=== PATIENT | female | born 1965 | race Caucasian/White ===

== ENCOUNTER 2016-11-01 06:24 | Emergency (ER) | payer OTHER ==
[~2016-11-01] VITALS: Ht 165.1 cm; Wt 80.0 kg
[~2016-11-01 06:24] MED LIST: BP MED PO; CIPR500T4 PO; GABA100C2 PO; LORTA5 PO; SLEEP MED PO; ZOFR4TAB3 SL
[2016-11-01 06:26] VITALS: BP 188/101; PULSE 75; RESP 20; TEMP 98.7; O2SAT 97
[2016-11-01] MEDS ORDERED: SODIUM CHLOR 0.9% 1000 ML INJ 1,000 ML IV SCH (07:10)
[2016-11-01] MEDS ORDERED: SODIUM CHLORIDE 0.9% FLUSH 10 ML FLUSH IV FLUSH PRN (07:15)
[2016-11-01] MEDS ORDERED: ONDANSETRON HCL 4 MG/2 ML VIAL IVP ONE (07:15)
[2016-11-01] MEDS ORDERED: KETOROLAC TROMETHAMINE 30 MG/ML (IVP) VIAL IVP ONE (07:15)
--- NOTE | 2016-11-01 07:16 | PD ---
HPI Chief Complaint: Abdominal Pain Time Seen by Provider: 07:06 Travel History International Travel<30 days: No Contact w/Intl Traveler<30days: No Traveled to known affect area: No History of Present Illness HPI 51-year-old female presents emergency Department with acute onset suprapubic and right lower quadrant abdominal pain since approximately 4:00 this morning. Patient states it felt like a menstrual cramp at first but she's not had a period in 3 months because she is going through "change". She denies any nausea vomiting diarrhea constipation. She states she does have some dark stools. States this never happened to her before. She does have a history of endometrial ablation. Only surgery to the abdomen as gallbladder. Patient states her pain is intense right lower quadrant cramping in nature and rapidly worsening. PFSH Past Medical History Cancer: No Cardiovascular Problems: Yes (HTN) Diabetes: No Endocrine: No Gastrointestinal Disorders: Yes GERD: Yes Glaucoma: No Genitourinary: Yes (ENLARGED KIDNEY PER PT "BORN WITH") Headaches: Yes Hepatitis: No Hiatal Hernia: No Hypertension: Yes Musculoskeletal: Yes (NECK SPURS) Neurologic: Yes ("FOR A SPOT ON MY BRAIN") Psychiatric: No Reproductive: No Respiratory: No Thyroid Disease: No Tetanus Vaccination: Unknown ?: Not : 5 Para: 3 Miscarriage: 2 Past Surgical History Cholecystectomy: Yes Gynecologic Surgery: Yes (OVARIAN CYST REMOVED/ABLATION OF UTERUS) Oral Surgery: Yes (TEETH EXTRACTED) Pacemaker: No Other Surgery: Yes Social History Alcohol Use: Yes (OCCAS) Tobacco Use: Yes (1 PK/DAY) Substance Use: No Allergies-Medications (Allergen,Severity, Reaction): Coded Allergies: Clindamycin (Verified Allergy, Severe, rash, 11/01/16) Codeine (Verified Allergy, Severe, 11/01/16) Penicillin (Verified Allergy, Mild, RASH, NAUSEA & VOMITING, 11/01/16) Reported Meds & Prescriptions Reported Meds & Active Scripts Active Ultram (Tramadol HCl) 50 Mg Tab 50 Mg PO Q6H PRN Ciprofloxacin (Ciprofloxacin HCl) 500 Mg Tab 500 Mg PO BID 7 Days Reported [Sleep Med] 1 Tab PO HS [Bp Med ] 1 Tab PO HS Review of Systems Except as stated in HPI: all other systems reviewed are Neg Physical Exam Narrative GENERAL: Well-developed well-nourished appears uncomfortable SKIN: Focused skin assessment warm/dry. HEAD: Atraumatic. Normocephalic. EYES: Pupils equal and round. No scleral icterus. No injection or drainage. ENT: No nasal bleeding or discharge. Mucous membranes pink and moist. NECK: Trachea midline. No JVD. CARDIOVASCULAR: Regular rate and rhythm. No murmur appreciated. RESPIRATORY: No accessory muscle use. Clear to auscultation. Breath sounds equal bilaterally. GASTROINTESTINAL: Abdomen soft, non-tender, nondistended. Hepatic and splenic margins not palpable. MUSCULOSKELETAL: No obvious deformities. No clubbing. No cyanosis. No edema. NEUROLOGICAL: Awake and alert. No obvious cranial nerve deficits. Motor grossly within normal limits. Normal speech. PSYCHIATRIC: Appropriate mood and affect; insight and judgment normal. Data Data Last Documented VS Vital Signs Date Time Temp Pulse Resp B/P Pulse Ox O2 Delivery O2 Flow Rate FiO2 11/01/16 10:00 83 16 144/91 99 Room Air 11/01/16 06:26 98.7 Orders Urinalysis - C+S If Indicated (11/01/16 06:57) Ed Urine Pregnancytest Poc (11/01/16 06:57) Complete Blood Count With Diff (11/01/16 07:10) Comprehensive Metabolic Panel (11/01/16 07:10) Lipase (11/01/16 07:10) Prothrombin Time / Inr (Pt) (11/01/16 07:10) Act Partial Throm Time (Ptt) (11/01/16 07:10) Iv Access Insert/Monitor (11/01/16 07:10) Ecg Monitoring (11/01/16 07:10) Oximetry (11/01/16 07:10) Ondansetron Inj (Zofran Inj) (11/01/16 07:15) Sodium Chlor 0.9% 1000 Ml Inj (Ns 1000 M (11/01/16 07:10) Sodium Chloride 0.9% Flush (Ns Flush) (11/01/16 07:15) Ketorolac Inj (Toradol Inj) (11/01/16 07:15) Ct Abd/Pel W Iv Contrast(Rout) (11/01/16 ) Urine Culture (11/01/16 08:27) Iohexol 350 Inj (Omnipaque 350 Inj) (11/01/16 09:08) Oxycodone-Acetamin 5-325 Mg (Percocet (11/01/16 09:45) Labs Laboratory Tests Test 11/01/16 11/01/16 07:45 08:27 White Blood Count 14.3 TH/MM3 Red Blood Count 4.44 MIL/MM3 Hemoglobin 13.4 GM/DL Hematocrit 40.7 % Mean Corpuscular Volume 91.6 FL Mean Corpuscular Hemoglobin 30.3 PG Mean Corpuscular Hemoglobin 33.0 % Concent Red Cell Distribution Width 13.6 % Platelet Count 346 TH/MM3 Mean Platelet Volume 7.7 FL Neutrophils (%) (Auto) 78.0 % Lymphocytes (%) (Auto) 14.5 % Monocytes (%) (Auto) 5.7 % Eosinophils (%) (Auto) 1.6 % Basophils (%) (Auto) 0.2 % Neutrophils # (Auto) 11.2 TH/MM3 Lymphocytes # (Auto) 2.1 TH/MM3 Monocytes # (Auto) 0.8 TH/MM3 Eosinophils # (Auto) 0.2 TH/MM3 Basophils # (Auto) 0.0 TH/MM3 CBC Comment DIFF FINAL Differential Comment Prothrombin Time 10.0 SEC Prothromb Time International 0.9 RATIO Ratio Activated Partial 29.0 SEC Thromboplast Time Sodium Level 137 MEQ/L Potassium Level 4.0 MEQ/L Chloride Level 107 MEQ/L Carbon Dioxide Level 23.0 MEQ/L Anion Gap 7 MEQ/L Blood Urea Nitrogen 11 MG/DL Creatinine 0.44 MG/DL Estimat Glomerular Filtration 151 ML/MIN Rate Random Glucose 98 MG/DL Calcium Level 8.4 MG/DL Total Bilirubin 0.4 MG/DL Aspartate Amino Transf 20 U/L (AST/SGOT) Alanine Aminotransferase 15 U/L (ALT/SGPT) Alkaline Phosphatase 79 U/L Total Protein 7.0 GM/DL Albumin 3.7 GM/DL Lipase 90 U/L Urine Color YELLOW Urine Turbidity CLEAR Urine pH 7.0 Urine Specific [place] 1.013 Urine Protein NEG mg/dL Urine Glucose (UA) NEG mg/dL Urine Ketones NEG mg/dL Urine Occult Blood SMALL Urine Nitrite NEG Urine Bilirubin NEG Urine Urobilinogen LESS THAN 2.0 MG/DL Urine Leukocyte Esterase MOD Urine RBC 1 /hpf Urine WBC 21 /hpf Urine Squamous Epithelial 2 /hpf Cells Urine Bacteria RARE /hpf Urine Mucus FEW /lpf Microscopic Urinalysis Comment CULTURE INDICATED MDM Medical Decision Making Medical Screen Exam Complete: Yes Emergency Medical Condition: Yes Differential Diagnosis Uterine pain, pelvic cramping, menstrual cramping, urinary tract infection, appendicitis, acute abdomen unlikely. Narrative Course Patient was roomed in the emergency department, she appears uncomfortable but is easily distracted from her pain. She was initially given Toradol and stated she was still having significant pain. A CT abdomen was pursued which did show what appear to be uterine fibroids versus mass. This was discussed at length with the patient and recommend that she need follow-up with an [facility] for consideration of biopsy. The remainder of her labs were unremarkable except for urinary tract infection. Patient given Percocet now feeling somewhat better. Did discuss with the patient a pelvic exam and she declined at this time. Discussed symptomatically management and return to ED criteria. She stable for discharge at this time. Diagnosis Primary Impression: Pelvic pain Additional Impressions: Urinary tract infection Uterine fibroid Referrals: Celia Douglas MD Additional Instructions: Need follow-up with an [facility] for consideration of a biopsy of the uterus. Med/Other Pt SpecificInfo: Prescription(s) given Scripts Tramadol (Ultram)50 Mg Tab50 Mg PO Q6H PRN (PAIN) #12 TAB Ref 0 Prov:Ziggy Driscoll MD 11/01/16 Ciprofloxacin 500 Mg Onb932 Mg PO BID 7 Days Ref 0 Prov:Ziggy Driscoll MD 11/01/16 Disposition: 01 DISCHARGE HOME Condition: Stable Ziggy Driscoll MD Nov 01, 2016 07:16
[2016-11-01 07:27] VITALS: BP 153/88; PULSE 69; RESP 20; O2SAT 100
[2016-11-01 08:03] LABS: AUTOMATED NEUTROPHIL # 11.2 TH/MM3 (1.8-7.7); BASOPHIL % 0.2 % (0.0-2.0); EOSINOPHIL # 0.2 TH/MM3 (0-0.4); EOSINOPHIL % 1.6 % (0.0-4.0); HEMATOCRIT 40.7 % (35.0-46.0); HEMO FLAGS DIFF FINAL; LYMPH % 14.5 % (9.0-44.0); LYMPHOCYTE # 2.1 TH/MM3 (1.0-4.8); MEAN CELL VOLUME 91.6 FL (80.0-100.0); MEAN CORPUSCULAR HEMOGLOBIN 30.3 PG (27.0-34.0); MONO % 5.7 % (0.0-8.0); PLATELET COUNT 346 TH/MM3 (150-450); RED BLOOD COUNT 4.44 MIL/MM3 (4.00-5.30); RED CELL DISTRIBUTION WIDTH 13.6 % (11.6-17.2); WHITE BLOOD COUNT 14.3 TH/MM3 (4.0-11.0)
[2016-11-01 08:15] LABS: INTERNATIONAL NORMALIZED RATIO 0.9 RATIO
[2016-11-01 08:19] LABS: ALT (GPT) 15 U/L (10-53); ANION GAP 7 MEQ/L (5-15); AST (GOT) 20 U/L (15-37); BLOOD UREA NITROGEN 11 MG/DL (7-18); CHLORIDE 107 MEQ/L (98-107); GLOMERULAR FILTRATION RATE 151 ML/MIN (>89); SODIUM (NA) 137 MEQ/L (136-145)
[2016-11-01 08:21] LABS: ALKALINE PHOSPHATASE 79 U/L (45-117); TOTAL BILIRUBIN ADULT 0.4 MG/DL (0.2-1.0)
[2016-11-01 08:37] LABS: BACTERIA, URINE RARE /hpf; BLOOD, URINE SMALL (NEG); COMMENT (UR) CULTURE INDICATED; CULTURE IF INDICATED CULTURE INDICATED; GLUCOSE,URINE NEG (NEG); KETONE, URINE NEG (NEG); MUCUS URINE FEW /lpf (OCC); NITRITE,URINE NEG (NEG); SQUAMOUS EPITHELIAL CELL URINE 2 /hpf (0-5); URINE COLOR YELLOW (YELLW/STRAW)
[2016-11-01] MEDS ORDERED: IOHEXOL 350 MG/ML 10 ML VIAL (for RAD DIAG) IV ONE (09:08)
--- NOTE | 2016-11-01 09:22 | RADRPT ---
EXAM DATE/TIME: 11/01/2016 09:07 [facility] COMPARISON: CT ABDOMEN & PELVIS W/O CONTRAST, June 28, 2014, 16:24. INDICATIONS : Abdomen pain. IV CONTRAST: 100 cc Omnipaque 350 (iohexol) IV ORAL CONTRAST: No oral contrast ingested. RADIATION DOSE: 9.96 CTDIvol (mGy) MEDICAL HISTORY : Hypertension. SURGICAL HISTORY : Cholecystectomy. ENCOUNTER: Initial ACUITY: 1 day PAIN SCALE: 5/10 LOCATION: Bilateral abdomen. TECHNIQUE: Volumetric scanning of the abdomen and pelvis was performed. Using automated exposure control and ad justment of the mA and/or kV according to patient size, radiation dose was kept as low as reasonably achievable to obtain optimal diagnostic quality images. FINDINGS: Patient is status post cholecystectomy. Liver, spleen, pancreas, adrenal glands are unremarkable. A h orseshoe kidney is present. There are 2 nonobstructing calculi at the mid portion of the right renal component measuring up to 6.3 mm in there is also a left sided component just to the left of midline measuring 8 mm on image C5, nonobstructing. Atherosclerotic calcification of the aorta and iliac vess els. Uterus is heterogeneous. There are areas of low density which appear to extend from the endometr ial cavity versus directly adjacent, and uterine fibroid versus an endometrial mass are consideration s. Left ovarian cyst measuring 19 cm. No evidence of bowel obstruction. Bladder unremarkable. Lung ba ses are clear. Osseous structures are intact. CONCLUSION: 1. Horseshoe kidney with nonobstructing calculi. 2. Left ovarian cyst. 3. Atherosclerosis. 4. Heterogeneous uterus as described above. The possibility of an endometrial based mass versus uteri ne fibroids are differential diagnostic considerations. On the coronal images there is a suggestion o f a arcuate uterine configuration Vazquez Mosqueda MD on November 01, 2016 at 9:17 Board Certified Radiologist. This report was verified electronically.
[2016-11-01] MEDS ORDERED: oxyCODONE/ACETAMINOPHEN 5 MG/325 MG TAB PO ONE (09:45)
[2016-11-01 10:00] VITALS: BP 144/91; PULSE 83; RESP 16; O2SAT 99
[2016-11-01] MEDS ORDERED: CIPR500T2 PO (10:22)
[2016-11-01] MEDS ORDERED: ULTR50TA5 PO (10:22)
== END 2016-11-01 10:59 | disposition home or self-care (01) ==
LOC: NEPE 06:24
DX: R10.2 Pelvic and perineal pain (principal); N39.0 Urinary tract infection, site not specified; D25.9 Leiomyoma of uterus, unspecified; I10 Essential (primary) hypertension; F17.200 Nicotine dependence, unspecified, uncomplicated; Z86.79 Personal history of other diseases of the circulatory system; Z87.19 Personal history of other diseases of the digestive system; Z87.448 Personal history of other diseases of urinary system; Z87.39 Personal history of other diseases of the musculoskeletal system and connective tissue; Z86.69 Personal history of other diseases of the nervous system and sense organs
CPT/HCPCS: 74177; 80053; 81001; 83690; 84703; 85025; 85610; 85730; 87086; 96374; 96375; 99284; J1885; J2405; J7030; Q9967